=== PATIENT | female | born 1945 | race African-American/Black ===

== ENCOUNTER 2016-05-29 09:26 | Day surgery (SDC) | payer MEDICARE, OTHER ==
[2016-05-22 13:06] LABS: HEMATOCRIT 39.6 % (36.0-48.0); HEMOGLOBIN 12.3 g/dL (12.0-16.0)
[2016-05-22 13:19] LABS: BUN (BLOOD UREA NITROGEN) 16 MG/DL (6-23); CALCIUM, SERUM 9.1 MG/DL (8.5-10.4); CHLORIDE, SERUM 107 MMOL/L (96-112); CO2 (CARBON DIOXIDE) 25 MMOL/L (24-34); CREATININE 0.81 MG/DL (0.55-1.02); GFR AFRICAN AMERICAN 85 ML/MIN (>=60); GFR NON AFRICAN AMERICAN 73 ML/MIN (>=60); GLUCOSE, SERUM 80 MG/DL (60-99); POTASSIUM, SERUM 3.5 MMOL/L (3.5-5.3); SODIUM, SERUM 142 MMOL/L (135-148)
--- NOTE | ~2016-05-29 | OP ---
Record Of Operation [facility] [address] [place]. 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 She now has a small papilloma on the central left breast that has atypia on biopsy. The suspicion is fairly high for papillary carcinoma. The lesion measures only about 4 mm in size. She has significant cystic changes with large cyst surrounding the area. PREOPERATIVE DIAGNOSES: 1. Papilloma with atypia left breast, rule out carcinoma breast. 2. History of carcinoma, right breast. POSTOPERATIVE DIAGNOSIS: 1. Papilloma with atypia left breast, rule out carcinoma breast. 2. History of carcinoma, right breast. SURGEON: Mike Aldrich M.D. SURGERY PERFORMED: Intraoperative ultrasound needle localization followed by left breast segmentectomy. PROCEDURE IN DETAIL: Under general anesthesia, the patient was prepped and draped in supine position in usual sterile fashion. The lesion at the edge of the left areola was localized with ultrasound and wire, and a needle was inserted. A curvilinear incision was made at the edge of the left areola and vertical dissection was carried down into the fatty tissue. There was a considerable fat necrosis along the biopsy site and a 10 blade was used to dissect through the fatty tissue on the lateral undersurface of the skin flap. A three-dimensional excision was then performed measuring 2.5 cm across keeping the indurated area of concern centered most within the specimen. It was removed and oriented for pathology. The deep margin was questioned on my evaluation and therefore an additional disc measuring 2 x 2 x 1.5 cm was taken from the deep margin. These were oriented and sent to pathology. The wound was irrigated hemostasis obtained. The nipple and areolar complex were reconstructed using Monocryl in order to allowed normal projection. The wound was otherwise closed in the normal fashion with two layers of Monocryl. The patient tolerated the procedure well without any complication. ESTIMATED BLOOD LOSS: Less than 10 mL. SPONGE COUNT: Correct. MR/MODL Record Of Operation [facility] [address] [place]. [address] NAME: ALICJA SOLIS : 43 STATUS : [facility]#: [id number] AGE: 70 ADM/REG DATE : 05/29/16 MR#: [id number] REPORT SERV DATE: 06/01/16 DICTATED BY: MIKE ALDRICH JR. DATE: 05/29/16 REPORT STATUS : Draft TRANSCRIBED BY: SUSAN DATE: 05/29/16 Mike Aldrich Jr., M.D. / [id number] CC: Addy Salmeron Jr., M.D. Eric Ellis, M.D. An Tran, MD
[~2016-05-29 09:26] MED LIST: CALTRA600D PO; CLARINEX5 MG PO; DULERA 100 MCG/13 GM INH; DULERA 200 MCG/13 GM INH; DUONEB INH; EYE GTTS; FISH-EPA1000 MG PO; IBU800 PO; LOZOLTAB PO; MIRALAX POWDER1 PKT PO; MULTIPLE VIT PO; NASONEX NAS; NORV25 PO; PRILOSEC40 MG PO; PROAIR HFA INH; SINGULAIR1 PO; SPIRIVA INH; ULTRAM50 PO; VENTOLIN HFA INH; VICODINTAB PO; ZOLAIR
== END 2016-05-29 15:32 | disposition home or self-care (01) ==
LOC: SDC 09:26
PROVIDERS: Surgery Surgical Oncology
PROC: 0HBT0ZZ Excision of Right Breast, Open Approach (ICD-10-PCS; 2016-05-29)
PROC: BH40ZZZ Ultrasonography of Right Breast (ICD-10-PCS; principal; 2016-05-29 11:00)
DX: D24.2 Benign neoplasm of left breast (principal); N60.92 Unspecified benign mammary dysplasia of left breast; I10 Essential (primary) hypertension; J45.909 Unspecified asthma, uncomplicated; K21.9 Gastro-esophageal reflux disease without esophagitis; Z90.710 Acquired absence of both cervix and uterus; Z98.890 Other specified postprocedural states
CPT/HCPCS: 80048; 85014; 85018; 88305; 88307; 93005; A9270-GY; J0690; J2250; J2270; J2405; J3010